=== PATIENT | female | born 1990 | race Caucasian/White ===

== ENCOUNTER 2016-10-11 08:04 | Day surgery (SDC) | payer OTHER ==
[~2016-10-11] VITALS: Ht 177.8 cm; Wt 86.0 kg
[~2016-10-11 08:04] MED LIST: 0.9% Sodium Chloride 1,000 ML IV SCH; PREN1TAB73 PO; SERT50TA9 PO; Sodium Chloride LOK Flush 10 mL Syringe IV PRN; fentaNYL-PF 50 mCg/mL 2 mL Inj IVPUSH PRN
[2016-10-11 08:25] VITALS: BP 125/83; PULSE 77; RESP 16; O2SAT 98
[2016-10-11 09:38] VITALS: BP 110/68; PULSE 74; RESP 14; O2SAT 98
[2016-10-11 09:50] VITALS: BP 115/75; PULSE 74; RESP 14; O2SAT 99
--- NOTE | 2016-10-11 10:37 | ENDO ---
[address] [address] ENDOSCOPY PROCEDURE PATIENT: BRIDGER CARLSON : 1990 MR#: [id number] ADMIT: 10/11/2016 JOB ID: [id number] DATE: 10/11/2016 PROCEDURE: Esophagogastroduodenoscopy. INDICATION: Right upper quadrant pain. Patients ASA classification is 1. Mallampati score is 2. MEDICATIONS: 1. Versed 8 mg. 2. Fentanyl 150 mcg. INSTRUMENT USED: GIF H 180 J. PROCEDURE DETAILS: After informed consent was obtained, the patient was brought into the GI suite, where she was placed on oxygen via nasal cannula and monitored with continuous pulse oximeter, telemetry, and blood pressure monitoring. A time-out was performed, then, she was placed in a left lateral decubitus position and medications were administered for sedation. A bite block was placed. The standard esophagogastroduodenoscopy scope was inserted through the bite block and advanced under direct visualization to second portion of duodenum without difficulty. FINDINGS: 1. Normal appearing duodenal bulb, first and second portion. Multiple random biopsies were obtained. 2. Normal-appearing pylorus, antrum and gastric body. 3. Retroflexed views in the gastric body revealed a normal-appearing cardia and fundus. Multiple random biopsies were obtained in the antrum and body. 4. The GE junction was at approximately 41 cm with a slightly irregular Z-line. Multiple biopsies were obtained in the distal esophagus. 5. In the esophagus, we did see bile stained liquid in the mid esophagus. This is suggestive of bile acid reflux. The remainder of the esophagus was otherwise unremarkable. IMPRESSION: 1. Findings suggestive of bile acid reflux. 2. Slightly irregular gastroesophageal junction. RECOMMENDATIONS: 1. Reflux precautions. 2. PPI daily. 3. Proceed to colonoscopy. COMPLICATIONS: None. ESTIMATED BLOOD LOSS: Less than 5 mL. Cc: Primary care provider Tish Valerio
--- NOTE | 2016-10-11 10:42 | ENDO ---
[address] [address] ENDOSCOPY PROCEDURE PATIENT: BRIDGER CARLSON : 1990 MR#: [id number] ADMIT: 10/11/2016 JOB ID: [id number] DATE: 10/11/2016 PROCEDURE PERFORMED: Colonoscopy. INDICATION: Change in bowel habits and right upper quadrant pain. ASA classification and Mallampati score . INSTRUMENT USED: PCF H 180 AL PREPARATION QUALITY: Fair. PROCEDURE DETAILS: After completion of the EGD exam, the patient was turned and then a digital rectal exam was performed which was unremarkable. The colonoscope was then inserted into the rectum and advanced under direct visualization to the cecum, which identified by the presence of the ileocecal valve and appendiceal orifice. Once the cecum was reached, the terminal ileum was intubated, which was identified by the presence of the ileocecal valve and villous appearing mucosa of the terminal ileum. In the terminal ileum, the colonoscope was then withdrawn back into the rectum where the mucosa and lumen were examined. In the rectum, retroflexion was performed. Following retroflexion, remaining air in the rectum was suctioned, and procedure was completed. FINDINGS: Normal exam from rectum to terminal ileum. Multiple random biopsies were obtained throughout the entire colon and terminal ileum. IMPRESSION: Normal colonoscopy. RECOMMENDATIONS: 1. Await biopsy results. 2. Follow up in GI clinic. COMPLICATIONS: None. ESTIMATED BLOOD LOSS: Less than 5 mL. Cc: Primary care provider Tish Valerio
--- NOTE | 2016-10-14 15:17 | PATH ---
SURGICAL PATHOLOGY Attending Physician:Holly Light CASE STATUS: Signed Out PATIENT NAME: BRIDGER CARLSON PID: [id number] : 1990 DATE COLLECTED:10/11/2016 20:33 SPECIMEN: 1: Duodenum, Biopsy 2: Gastric, Biopsy 3: Esophagus, Biopsy 4: Ileum, Biopsy 5: Colon, Biopsy CLINICAL HISTORY: 1). DUODENUM BIOPSY 2). GASTRIC BIOPSY, RULE OUT H.PYLORI 3). DISTAL ESOPHAGUS BIOPSY 4). TERMINAL ILEUM BIOPSY 5). RANDOM BIOPSY FINAL DIAGNOSIS: 1. Duodenum Biopsy: Fragments of normal appearing small bowel mucosa. Normal delicate mucosal villi present. Negative for significant inflammation, dysplasia and malignancy. 2. Gastric Biopsies: Mucosal hyperemia without associated significant inflammation Involving antral and fundic mucosa. Negative for evidence of Helicobacter on H&E stain. Negative for intestinal metaplasia. Negative for dysplasia and malignancy. 3. Distal Esophagus Biopsy: Fragments of squamous mucosa and gastric cardia-type mucosa negative for specialized metaplasia of Rich's-type esophagus. Chronic inflammation with reactive epithelial changes and scattered eosinophils present within the squamous epithelium, all consistent with changes of chronic reflux. 4. Terminal Ileum Biopsy: Fragments of normal appearing terminal ileum mucosa. Negative for granulomas. Negative for significant inflammation, dysplasia and malignancy. 5. Random Colon Biopsies: Fragments of normal appearing colon mucosa. Negative for significant architectural distortion. Negative for significant inflammation, dysplasia and malignancy. ICD10: K21.0 GROSS DESCRIPTION: The specimen is received in five formalin filled containers labeled with the patient's name. 1). The specimen is sublabeled "duodenal" and consists of 2 portions of tissue which aggregate to 0.3 x 0.3 x 0.2 CM. The specimen is entirely submitted in cassettes 1A. 2). The specimen is sublabeled "gastric" and consists of a 0.4 x 0.3 x 0.2 CM portion of tissue which is entirely submitted in cassette 2A. 3). The specimen is sublabeled "distal esophagus" and consists of 2 portions of tissue which aggregate to 0.3 x 0.2 x 0.2 CM. The specimen is entirely submitted in cassette 3A. 4). The specimen is sublabeled " TI " and consists of 2 portions of tissue which aggregate to 0.3 x 0.3 x 0.2 CM. The specimen is entirely submitted in cassette 4A. 5). The specimen is sublabeled "random" and consists of multiple portions of tissue which aggregate to 0.6 x 0.6 x 0.2 CM. The specimen is entirely submitted in cassette 5A. 10/11/2016 [facility] ICD-9 CODES: CPT CODES: 1: 03500 2: 11521 3: 80006 4: 42627 5: 92791 Electronically Signed Out Waldo Kauffman MD [facility] [address], [place] [address] Technical component performed at [facility], [address], [place], [address]
== END 2016-10-11 23:59 | disposition home or self-care (01) ==
LOC: END 08:04
PROVIDERS: ATTEND Internal Medicine Gastroenterology
DX: R19.4 Change in bowel habit (principal); K21.9 Gastro-esophageal reflux disease without esophagitis; K20.0 Eosinophilic esophagitis
CPT/HCPCS: 43239; 45380; 99153; G0500; J2250; J3010; J7030